=== PATIENT | female | born 1945 | race Caucasian/White ===

== ENCOUNTER 2016-09-20 12:49 | Emergency (ER) | payer MEDICARE ==
[2016-09-20 13:28] VITALS: TEMP 98.6; BMI 20.5
[2016-09-20] MEDS ORDERED: ACETAMINOPHEN 325 MG/TAB TABLET PO ONE (13:36)
--- NOTE | 2016-09-20 14:26 | DIRPT ---
CLINICAL DATA: Pain following fall EXAM: CT CERVICAL SPINE WITHOUT CONTRAST TECHNIQUE: Multidetector CT imaging of the cervical spine was performed without intravenous contrast. Multiplanar CT image reconstructions were also generated. COMPARISON: None. FINDINGS: There is a nondisplaced type II odontoid fracture. There is no other fracture evident. No spondylolisthesis. The prevertebral soft tissues and predental space regions are normal. There is moderately severe disc space narrowing at C4-5, C5-6, C6-7, and C7 T1. There is facet hypertrophy at most levels bilaterally. There is exit foraminal narrowing due to bony hypertrophy at C3-4 bilaterally, C4-5 bilaterally, C5-6 bilaterally, and C6-7 bilaterally. : There is calcification in both carotid arteries. There is a dominant mass arising from the posterior right lobe of the thyroid measuring 2.4 x 1.4 cm. Visualized mastoids are clear. Visualized brain parenchyma is unremarkable. IMPRESSION: Nondisplaced type II odontoid fracture. No other fracture evident. No spondylolisthesis. Multilevel osteoarthritic change and spondylosis. Dominant mass right lobe thyroid. Consider further evaluation with thyroid ultrasound. If patient is clinically hyperthyroid, consider nuclear medicine thyroid uptake and scan. Bilateral carotid artery calcification. Critical Value/emergent results were called by telephone at the time of interpretation on 09/20/2016 at 2:23 pm to ROSALINDA LOCKE MD, who verbally acknowledged these results. Electronically Signed By: Berhane Rosenberg III, M.D. On: 09/20/2016 14:24
--- NOTE | 2016-09-20 14:43 | EDPRACDOC ---
- General Chief Complaint: Fall Stated Complaint: SHORT OF BREATH Time Seen by Provider: 09/20/16 13:28 Information Source: Patient, Family, Hotel Service Supervisor - History of Present Illness Onset: [employer] Pain Severity: Reports: Mild, Moderate Injuries/Pain Location: Reports: neck. Denies: head Reason for Fall: Reports: tripped Loss of Consciousness: no loss of consciousness Modifying Factors: improves with: movement Associated Symptoms (Fall): Reports: muscle spasms, neck pain. Denies: headache , shortness of breath, slurred speech, trouble walking Allergies/Adverse Reactions: Allergies No Known Allergies Allergy (Verified 09/20/16 13:24) Home Medications: Ambulatory Orders Atorvastatin Calcium [Lipitor] 20 mg PO QHS 09/20/16 Escitalopram Oxalate [Lexapro] 10 mg PO QHS 09/20/16 Hydrocodone Bit/Acetaminophen [Hydrocodon-Acetaminophen 5-325] 1 - 2 tab PO Q4H PRN #30 tab 09/20/16 ED Past Medical History - History Reviewed Yes Nurses notes reviewed and agree except as marked - Patient Medical History Neurological History: Reports: Dementia Cardiac History: Reports: Hypertension GI/ History: Denies: Urinary Tract Infection Psychological History: Reports: Depression Additional Past Surgical History: LUMBAR FIXATION - Social Medical History Smoking Status: Former smoker ETOH: None Substance Abuse: None Lives With: Family Lives In: Home EDM Review of Systems - Review of Systems ROS Negative Except as Marked: Yes All systems reviewed and were negative except as marked - Physical Exam Constitutional: Alert (Awake), No apparent distress Oriented to: Time, Person, Place Last recorded Vital Signs: Last Vital Signs Temp 98.6 F 09/20/16 13:05 Pulse 69 09/20/16 14:35 Resp 16 09/20/16 14:35 BP 131/64 09/20/16 14:35 Pulse Ox 96 09/20/16 14:35 Oxygen Pulse Oxygen Saturation 96 O2 Device Room Air Oxygen Flow Rate Fraction of Inspired Oxygen ( FIO2) - HEENT Head: Normal ( normocephalic) Eye Exam: Normal (PERRL, EOMI, Sclera white) Oropharynx: Normal (Pharynx:Moist without exudate,Gums-no swelling) Tympanic Membrane: Normal ENT EAC: Normal TMJ: Normal Nose: No Symptoms Reported (septum midline) Neck: Limited ROM (SOMEWHAT), Paraspinal Tenderness (LEFT PARASPINAL), Tender ( LEFT PARASPINAL). negative: Bony Tenderness, Edema, In Collar, Step off - Respiratory/Cardiovascular Respiratory: Normal - CTA (BBS clear to auscultation without adventitious sounds ) Cardiovascular: Normal (RRR without murmur, gallop or rub) - GI Auscultation: Normal (NABS) Palpation: Normal (Soft,No rebound or guarding, non distended) Tenderness: Non tender Fragoso's Sign: Negative - Musculoskeletal Back: Normal (Non-Tender) Extremities: Normal (Normal tone, Pulses 2+ No cyanosis or edema, FROM) - Integumentary Skin: Normal, Warm, Dry Lymphatics: Normal (no adenopathy) - Neurologic Memory Impaired: Normal Motor Function: Normal (Normal tone, Pulses 2+ No cyanosis or edema, FROM) Cranial Nerve: Normal (CN II-X11 intact sensation, strength 5/5) Cerebellar: Normal Mood Description: Normal Perception: Normal Neurologic Comment: Right Left Shoulder Abduction 5/5 5/5 Shoulder Adduction 5/5 5/5 Bicept Flexion 5/5 5/5 Tricept Extention 5/5 5/5 Wrist Dorsiflexion 5/5 5/5 Wrist Volarflexion 5/5 5/5 Hip Flexion 5/5 5/5 Hip Extension 5/5 5/5 Quad Extension 5/5 5/5 Hamstring Flexion 5/5 5/5 Foot Dorsiflexion 5/5 5/5 Foot Plantarflexion 5/5 5/5 - Diagnostic Imaging C-spine Image interpreted by: Radiologist Patient Name: RICHY PRATER LOC: ED : 1945 AGE: 71 Order Date:09/20/16 Date of Service: Report # [id number] Ord Physician: Sherine Guidry MD Exam # [id number] Emergency Physician: Sherine Guidry MD Exam(s): [id number] CT/CT CERVICAL SPINE W/O CM CLINICAL DATA: Pain following fall EXAM: CT CERVICAL SPINE WITHOUT CONTRAST TECHNIQUE: Multidetector CT imaging of the cervical spine was performed without intravenous contrast. Multiplanar CT image reconstructions were also generated. COMPARISON: None. FINDINGS: There is a nondisplaced type II odontoid fracture. There is no other fracture evident. No spondylolisthesis. The prevertebral soft tissues and predental space regions are normal. There is moderately severe disc space narrowing at C4-5, C5-6, C6-7, and C7 T1. There is facet hypertrophy at most levels bilaterally. There is exit foraminal narrowing due to bony hypertrophy at C3-4 bilaterally, C4-5 bilaterally, C5-6 bilaterally, and C6-7 bilaterally. : There is calcification in both carotid arteries. There is a dominant mass arising from the posterior right lobe of the thyroid measuring 2.4 x 1.4 cm. Visualized mastoids are clear. Visualized brain parenchyma is unremarkable. IMPRESSION: Nondisplaced type II odontoid fracture. No other fracture evident. No spondylolisthesis. Multilevel osteoarthritic change and spondylosis. Dominant mass right lobe thyroid. Consider further evaluation with thyroid ultrasound. If patient is clinically hyperthyroid, consider nuclear medicine thyroid uptake and scan. Bilateral carotid artery calcification. Critical Value/emergent results were called by telephone at the time of interpretation on 09/20/2016 at 2:23 pm to SHERINE GUIDRY MD, who verbally acknowledged these results. Electronically Signed By: Berhane Rosenberg III, M.D. On: 09/20/2016 14:24 Electronically Signed By: Berhane Rosenberg III, MD Electronically Signed Date/Time: 426 Dictate Date/Time: 09/20/161416 Technologist: Students,Radiology Transcribed By: Sandra Transcribed Date/Time: 09/20/16 1424 - Departure Disposition: Home Condition: Stable Final Diagnosis: Accidental fall Nondisplaced type II dens fracture Qualifiers: Encounter type: initial encounter Fracture type: closed Qualified Code(s): S12.112A - Nondisplaced Type II dens fracture, initial encounter for closed fracture Instructions: RICE: Routine Care for Injuries, [facility] (ED) Education/Counseling Given To: Patient, Family Member Education/Counseling Given Regarding: Diagnosis, Treatment, Prognosis Referrals: Rosales Barth MD [Staff Physician] - Two Weeks Darien Carrillo PA [Primary Care Provider] - As Needed Prescriptions: Hydrocodone Bit/Acetaminophen [Hydrocodon-Acetaminophen 5-325] 1 - 2 tab PO Q4H PRN #30 tab PRN Reason: Pain Additional Instructions: WEAR THE CERVICAL COLLAR EVERY DAY ALL DAY, TAKING IT OFF ONLY FOR BRIEF SHOWERS. THE COLLAR WILL PROBABLY HAVE TO BE WORN FOR 3 MONTHS. - Physician Consulted Surgery Time Called: 14:41 Provider Called: Rosales Barth Time Manager Mba Returned Call: 14:41 (HARD CERVICAL COLLAR 27/03 , OFF FOR SHOWER. SEE IN CLINIC 2 WEEKS)
[2016-09-20] MEDS ORDERED: OXYCODONE HCL 5 MG TABLET PO ONE (15:29)
[2016-09-20 15:47] VITALS: BP 159/73; PULSE 70
== END 2016-09-20 15:40 | disposition home or self-care (01) ==
LOC: ED 12:49
DX: S12.112A Nondisplaced Type II dens fracture, initial encounter for closed fracture (principal); W19.XXXA Unspecified fall, initial encounter; Y93.9 Activity, unspecified
CPT/HCPCS: 72125; 99284; A9270; J3490